=== PATIENT | male | born 1990 | race Two or more races ===

== ENCOUNTER 2019-04-30 19:12 | Emergency (ER) | payer BC, OTHER ==
[~2019-04-30] VITALS: Ht 170.2 cm; Wt 70.3 kg
--- NOTE | 2019-04-30 19:51 | NUR ---
MD AT BEDSIDE FOR HX AND PHYSICAL
[2019-04-30] MEDS ORDERED: SODIUM BICARBONATE 4.2 % (NEUT) 5 ML VIAL TP ONE (20:00)
[2019-04-30] MEDS ORDERED: PENICILLIN V POTASSIUM 500 MG TABLET PO ONE (20:00)
[2019-04-30] MEDS ORDERED: LIDOCAINE 1%-EPI 1:100,000 20 ML VIAL IJ ONE (20:00)
[2019-04-30] MEDS ORDERED: TDAP DIPH,PERTUSS,TET VAC/PF 0.5 ML DISP.SYRIN IM ONE ×2 (20:00→20:11)
[2019-04-30] MEDS ORDERED: PENICILLIN V POTASSIUM 500 MG TABLET ONE (20:05)
--- NOTE | 2019-04-30 20:23 | NUR ---
PT ABLE TO TOLERATE SUTURE LAC REPAIR +ASEPTIC TECHNIQUE +STERILE TECHNIQUE NAD SIDERAILS X2 UP BED AT LOWEST POSITION
--- NOTE | 2019-04-30 20:39 | NUR ---
Patient discharged to home in stable conditon. Written and verbal after care instructions given. Patient verbalizes understanding of instructions. SITE CLEANED W/ GAUZE, AMBULATORY W/ STABLE GAIT ALL BELONGINGS W/ PT INSTRUCTED NOT TO DRIVE, PT VERBALIZED UNDERSTANDING
[2019-04-30 20:42] VITALS: BP 136/74
== END 2019-04-30 20:43 | disposition home or self-care (01) ==
LOC: ER 19:12
DX: S01.511A Laceration without foreign body of lip, initial encounter (principal); S01.81XA Laceration without foreign body of other part of head, initial encounter; J45.909 Unspecified asthma, uncomplicated; Z91.018 Allergy to other foods; W21.07XA Struck by softball, initial encounter; Y93.64 Activity, baseball; Y92.89 Other specified places as the place of occurrence of the external cause; Y99.8 Other external cause status
CPT/HCPCS: 90715; A4663